=== PATIENT | male | born 1960 | race Caucasian/White ===

== ENCOUNTER 2017-04-21 18:12 | Emergency (ER) | payer OTHER ==
[2015-03-31 15:23] VITALS: BMI 33.5
[~2017-04-21 18:12] MED LIST: BAYER CHEWABLE81 MG PO; ELIQUIS2.5 MG PO; IBUPROFEN800 MG PO; LISINOPRIL-HCTZ1 T13 PO; METOPROLOL TART50 MG PO; PERCOCET 10/3251 TA1 PO; XANAX1 MG PO; XANAX2 MG
[2017-04-21 21:27] LABS: BASOPHILS 0.2 % (0-2); HEMATOCRIT 50.1 % (42.0-54.0); HEMOGLOBIN 16.6 g/dL (13.5-17.5); IMMATURE GRANULOCYTES 0.2 % (0-5); LYMPHOCYTES 29.5 % (15-50); MCH 27.6 pg (26.0-34.0); MCHC 33.1 g/dL (31.0-37.0); MCV 83.4 fL (80.0-100.0); MEAN PLATELET VOLUME 10.6 fL (7.4-10.4); MONOCYTES 9.5 % (2-11); NEUTROPHILS 57.6 % (40-80); RBC 6.01 10x6/uL (4.20-6.10); WBC 8.1 10x3/uL (4.8-10.8)
[2017-04-21 21:30] LABS: PLATELET COUNT 232 10x3/uL (130-400)
[2017-04-21 21:49] LABS: ALBUMIN 4.2 g/dL (3.4-5.0); ALKALINE PHOSPHATASE 59 U/L (46-116); ALT (SGPT) 26 U/L (10-68); BILIRUBIN - TOTAL 0.87 mg/dL (0.2-1.3); CALC OSMOLALITY 279 mosm/kg (275-300); CALCIUM 9.7 mg/dL (8.5-10.1); CARBON DIOXIDE 27.9 mmol/L (21.0-32.0); CHLORIDE - SERUM 103 mmol/L (98-107); CREATINE KINASE 92 UL (21-232); CREATININE - SERUM 0.9 mg/dL (0.6-1.3); GLUCOSE 100 mg/dL (74-106); MAGNESIUM - SERUM 1.9 mg/dL (1.8-2.4); POTASSIUM - SERUM 3.9 mmol/L (3.5-5.1); PROTEIN - SERUM 7.9 g/dL (6.4-8.2); SODIUM 140 mmol/L (136-145); UREA NITROGEN 14 mg/dL (7-18); eGFR NON AFRICAN AMERICAN > 90 mL/min (90-120)
== END 2017-04-21 21:00 | disposition home or self-care (01) ==
LOC: D.ER 18:12
PROVIDERS: Emergency Medicine
DX: G51.0 Bell's palsy (principal)

== ENCOUNTER → 2017-04-28 11:15 | Outpatient (CLI) | payer OTHER ==
[2015-03-31 15:23] VITALS: BMI 33.5
== END | disposition home or self-care (01) ==
LOC: D.MRI 08:30
DX: G45.9 Transient cerebral ischemic attack, unspecified (principal)

== ENCOUNTER → 2017-05-19 13:36 | Outpatient (CLI) | payer OTHER ==
[2015-03-31 15:23] VITALS: BMI 33.5
[~2017-05-19 13:36] MED LIST changes: +DILAUDID2 MG PO; +ELIQUIS5 MG PO; +HYDROCODONE-APA1 TAB PO; +KLONOPIN1 MG PO
== END | disposition home or self-care (01) ==
LOC: D.US 05-13 11:30
DX: R22.42 Localized swelling, mass and lump, left lower limb (principal)

== ENCOUNTER 2017-06-09 09:06 | Day surgery (SDC) | payer OTHER ==
[~2017-06-09 09:06] MED LIST changes: -DILAUDID2 MG PO; -ELIQUIS5 MG PO
[2017-06-09 09:47] VITALS: BP 128/82; BMI 35.6
[2017-06-09 09:50] LABS: HEMATOCRIT 47.7 % (42.0-54.0); HEMOGLOBIN 15.4 g/dL (13.5-17.5); MCH 27.2 pg (26.0-34.0); MCHC 32.3 g/dL (31.0-37.0); MCV 84.1 fL (80.0-100.0); MEAN PLATELET VOLUME 9.9 fL (7.4-10.4); RBC 5.67 10x6/uL (4.20-6.10); RDW 14.3 % (11.5-14.5); WBC 7.6 10x3/uL (4.8-10.8)
[2017-06-09 10:03] LABS: CALC OSMOLALITY 285 mosm/kg (275-300); CALCIUM 8.9 mg/dL (8.5-10.1); CARBON DIOXIDE 26.3 mmol/L (21.0-32.0); CHLORIDE - SERUM 107 mmol/L (98-107); CREATININE - SERUM 0.9 mg/dL (0.6-1.3); GLUCOSE 108 mg/dL (74-106); POTASSIUM - SERUM 4.1 mmol/L (3.5-5.1); SODIUM 142 mmol/L (136-145); UREA NITROGEN 17 mg/dL (7-18); eGFR NON AFRICAN AMERICAN > 90 mL/min (90-120)
[2017-06-09] MEDS ORDERED: DILAUDID2 MG PO (11:45)
--- NOTE | 2017-06-09 14:50 | NUR ---
1345 IV DC WITH CATHER TIP INTACT
--- NOTE | 2017-06-09 14:51 | NUR ---
C/O PAIN OF A 8-10 LEVEL ,ANESTHESIA CALLED KNEE REBLOCKED
--- NOTE | 2017-06-09 15:12 | NUR ---
STATED PAIN LEVEL DOWN TO 5 , ASKING TO LEAVE
--- NOTE | 2017-06-12 09:32 | OP ---
PATIENT NAME: SARIKA JIMENEZ MEDICAL RECORD: [id number] :62 [facility] AD[facility] DATE: SURGEON: ERIC SOLORZANO MD DATE OF OPERATION: 06/09/2017 PREOPERATIVE DIAGNOSIS: Torn patellar tendon. POSTOPERATIVE DIAGNOSES: Torn patellar tendon plus complications of the patellar component. PROCEDURES: 1. Revision of the patella component of the total knee arthroplasty of the left knee. 2. Repair of the quadriceps mechanism. SURGEON: Eric Solorzano MD ANESTHESIA: General. INTRAOPERATIVE COMPLICATIONS: None. SUMMARY OF PATHOLOGIC FINDINGS: The patient had a horizontal split as predicted by physical examination and palpation; however, the patient had a very abnormal wear pattern on the patella with what appeared to be a small piece of bone extruding from the notch of the femur. Both were addressed. The patellar component was revised. OPERATIVE SUMMARY IN DETAIL: After obtaining the appropriate preoperative orthopedic surgery consent as well as anesthetic consultation, evaluation and clearance, the patient was brought to the operating room and placed on the operating table in supine position. After general laryngeal mask was administered, tourniquet was placed about the proximal aspect of left lower extremity. Left lower extremity was then prepped and draped in routine sterile fashion. The leg was elevated and exsanguinated, tourniquet inflated to 350 mmHg. An incision was made superiorly, taken down to the level of the superior aspect of the patella. The split in the quadriceps was readily available. Dissection was carried out in preparation for reapproximation of the quadriceps; however, I took the time to palpate the patella and given the findings of the abnormal wear pattern, I felt it was reasonable to go ahead with the paramedian arthrotomy and evaluate this more fully. After paramedian arthrotomy had been performed, the patella was taken out of the way. The bony substance in the notch of the femur was thought to be the cause of the abnormal patellar wear. This was removed in its entirety with hand osteotomes. All debris was removed from the field and at this point, the previously placed patellar button was gently removed without any bone loss as were the polyethylene pegs. The patella was then reprepared for a new 36 patellar component using the drill bit and then it was copiously irrigated. The new component was cemented into place. All excess cement was removed. After the cement was allowed to harden, the knee was taken through a range of motion with excellent range of motion and no grinding. At this point, the vertical split of the patella was reapproximated [id number]-le-hdsi using #2 Ethibond in a awwinn-ya-heanh fashion. This in fact was used to close the entire paramedian arthrotomy. Having completed this, the wound was copiously irrigated. The skin was closed with #1 Vicryl followed by 2-0 Vicryl and skin dottie. Sterile dressings were applied. Tourniquet was deflated. The patient was awakened and taken to the recovery room in stable condition. OPERATIVE REPORT [id number] SARIKA JIMENEZ All final needle and sponge counts were correct. TRANSINT:[id number] Voice Confirmation ID: [id number] DOCUMENT ID: [id number] ERIC SOLORZANO MD at 0932 CC: [id number] DICTATION DATE: 06/10/171711 GASKET FORMER: 06/10/172101 [facility] 06/09/17 [address] [place] [address]
--- NOTE | 2017-06-24 10:54 | OP ---
PATIENT NAME: SARIKA JIMENEZ MEDICAL RECORD: [id number] :62 LOCATION:TA ADMISSION DATE: SURGEON: ERIC SOLORZANO MD DATE OF OPERATION: 06/09/2017 PREOPERATIVE DIAGNOSIS: Left quadriceps rupture. POSTOPERATIVE DIAGNOSIS: Left quadriceps rupture plus irregularly worn patellar component. PROCEDURES: 1. Revision of the left patella component of the knee. 2. Repair of quadriceps tendon tear. SURGEON: Eric Solorzano MD ANESTHESIA: General. INTRAOPERATIVE COMPLICATIONS: None. SUMMARY OF PATHOLOGIC FINDINGS: A small prominence was protruding in the intercondylar notch of the originally placed total knee. This had caused a wear of the patella thusly liberating I am sure polyethylene causing for the patient's chronic swollen knee. The patient also had a sagittal tear of the quadriceps as it was nearly healed in the 2 separate components. OPERATIVE SUMMARY IN DETAIL: After obtaining the appropriate preoperative orthopedic surgery consent as well as anesthetic consultation, evaluation, and clearance operating room and placed on operating table in supine position. After general laryngeal mask was administered, the tourniquet was placed about the proximal aspect of the left lower extremity. Left lower extremity was then prepped and draped in routine sterile fashion. The leg was elevated and exsanguinated, tourniquet inflated to 350 mmHg. An incision was first started at the superior pole of the patella. This was taken down and the quadriceps defect was immediately recognized in that the 2 edges of which were rolled and not grown together, I took the opportunity at this time to palpate the patellar component and the finding as noted above was seen. An incision was then carried longer, paramedian arthrotomy was performed just enough so that the patella could be everted. The patellar component was removed along with all cement and polyethylene. Copious irrigation was then followed by re-preparation of the patella. A new patella size 36 mm was then cemented into and held in place while the cement was allowed to harden after all excess cement was removed. Having completed this, copious irrigation was then followed by closure of the paramedian arthrotomy with #2 Ethibond and then the quadriceps with blunted edges were cut fresh and then reapproximated [id number] using a #2 FiberWire. This resulted in excellent reapproximation. Having completed this, the patient's wound was closed with #1 Vicryl followed by 2-0 Vicryl and skin dottie. Sterile dressings were applied. The patient was awakened and taken to the recovery room in stable condition. All final needle and sponge counts were correct. TRANSINT:[id number] Voice Confirmation ID: [id number] DOCUMENT ID: [id number] OPERATIVE REPORT [id number] SARIKA JIMENEZ MD, ERIC LARES at 1054 CC: [id number] DICTATION DATE: 06/20/17 1207 AUTO BRAKE TECHNICIAN: 06/20/17 1358 [facility] 06/09/17 [address] [place] [address]
== END 2017-06-09 15:15 | disposition home or self-care (01) ==
LOC: D.OPS 09:06 → D.PAN 10:30 → D.OPS 10:30
PROVIDERS: Anesthesiology
DX: S76.112A Strain of left quadriceps muscle, fascia and tendon, initial encounter (principal); I25.10 Atherosclerotic heart disease of native coronary artery without angina pectoris; I10 Essential (primary) hypertension; Z01.812 Encounter for preprocedural laboratory examination

== ENCOUNTER 2017-06-23 11:04 | Inpatient (IN) | payer OTHER ==
[~2017-06-23] VITALS: Ht 180.3 cm; Wt 41.8 kg
[~2017-06-23 11:04] MED LIST changes: +DILAUDID2 MG PO
[2017-06-23 13:40] VITALS: BP 142/87
[2017-06-23 14:35] VITALS: BP 142/87; Ht 180.3 cm; Wt 41.8 kg
[2017-06-23 14:50] LABS: CALC OSMOLALITY 275 mosm/kg (275-300); CALCIUM 8.9 mg/dL (8.5-10.1); CARBON DIOXIDE 29.1 mmol/L (21.0-32.0); CHLORIDE - SERUM 100 mmol/L (98-107); CREATININE - SERUM 0.9 mg/dL (0.6-1.3); GLUCOSE 106 mg/dL (74-106); POTASSIUM - SERUM 4.3 mmol/L (3.5-5.1); SODIUM 138 mmol/L (136-145); UREA NITROGEN 12 mg/dL (7-18); eGFR NON AFRICAN AMERICAN > 90 mL/min (90-120)
[2017-06-23 14:54] LABS: APTT 20.9 SECONDS (22.8-39.4); INR 1.05 (0.85-1.17); PROTIME 13.6 SECONDS (11.6-15.0)
[2017-06-23 15:00] LABS: BASOPHILS 0.5 % (0-2); EOSINOPHILS 1.7 % (0-7); HEMATOCRIT 45.1 % (42.0-54.0); HEMOGLOBIN 14.5 g/dL (13.5-17.5); IMMATURE GRANULOCYTES 0.5 % (0-5); LYMPHOCYTES 14.2 % (15-50); MCH 26.4 pg (26.0-34.0); MCHC 32.2 g/dL (31.0-37.0); MCV 82.1 fL (80.0-100.0); MEAN PLATELET VOLUME 10.5 fL (7.4-10.4); MONOCYTES 14.2 % (2-11); NEUTROPHILS 68.9 % (40-80); RBC 5.49 10x6/uL (4.20-6.10); RDW 13.5 % (11.5-14.5); WBC 13.8 10x3/uL (4.8-10.8)
[2017-06-23 15:03] LABS: PLATELET COUNT 329 10x3/uL (130-400)
[2017-06-23 15:43] VITALS: BP 129/86
--- NOTE | 2017-06-23 19:15 | NUR ---
RECEIVED CARE FROM DAY NURSE. PT IN HIGH FOWLERS POSITION WITH COMPANY AT SIDE. REPORTS NO NEEDS AT THIS TIME. CALL LIGHT WITHIN REACH. IV INFUSING TO LEFT MIDLINE.
[2017-06-23 20:00] VITALS: BP 96/58
[2017-06-24] VITALS: BP 120/79
--- NOTE | 2017-06-24 03:05 | NUR ---
EYES CLOSED RESPIRATIONS WITH EASE AND UNLABORED. SR UP X2 CALL LIGHT WITHIN REACH.
[2017-06-24 03:57] LABS: BASOPHILS 0.4 % (0-2); EOSINOPHILS 3.5 % (0-7); HEMATOCRIT 39.2 % (42.0-54.0); HEMOGLOBIN 12.6 g/dL (13.5-17.5); IMMATURE GRANULOCYTES 0.4 % (0-5); LYMPHOCYTES 21.3 % (15-50); MCH 26.2 pg (26.0-34.0); MCHC 32.1 g/dL (31.0-37.0); MCV 81.5 fL (80.0-100.0); MONOCYTES 12.5 % (2-11); NEUTROPHILS 61.9 % (40-80); PLATELET COUNT 341 10x3/uL (130-400); RBC 4.81 10x6/uL (4.20-6.10); RDW 13.6 % (11.5-14.5); WBC 11.6 10x3/uL (4.8-10.8)
[2017-06-24 04:00] VITALS: BP 105/60
[2017-06-24 04:10] LABS: ALBUMIN 2.7 g/dL (3.4-5.0); ALKALINE PHOSPHATASE 107 U/L (46-116); ALT (SGPT) 35 U/L (10-68); BILIRUBIN - TOTAL 0.62 mg/dL (0.2-1.3); CALC OSMOLALITY 271 mosm/kg (275-300); CALCIUM 8.2 mg/dL (8.5-10.1); CHLORIDE - SERUM 100 mmol/L (98-107); CREATININE - SERUM 0.9 mg/dL (0.6-1.3); GLUCOSE 119 mg/dL (74-106); POTASSIUM - SERUM 3.9 mmol/L (3.5-5.1); PROTEIN - SERUM 6.6 g/dL (6.4-8.2); SODIUM 136 mmol/L (136-145); UREA NITROGEN 11 mg/dL (7-18); eGFR NON AFRICAN AMERICAN > 90 mL/min (90-120)
--- NOTE | 2017-06-24 07:30 | NUR ---
PT ASSESSMENT COMPLETE AWAKE AND ALERT NO DISTRESS NOTED PIV SITED TO LEFT HAND NS KVO AND MINING TEACHER MOVED TO THAT SITE 22 GA X 1 STICK. TOLERATED WELL.
--- NOTE | 2017-06-24 08:00 | NUR ---
PT WITHOUT DISTRESS.2ND IV PLACED BY HUNG.MONITOR FOR NEEDS
[2017-06-24 08:02] VITALS: BP 116/77
--- NOTE | 2017-06-24 10:30 | NUR ---
PT REMAINS ON BED REST HEPARIN INFUSING AT 15 PER PROTOCOL. LAST PTT RESULTS WITH NO CHANGE PER PROTOCOL. WILL MONITOR.
[2017-06-24 12:26] VITALS: BP 103/53
--- NOTE | 2017-06-24 14:28 | NUR ---
PT REMAINS IN BED NO DISTRESS NOTED VOICES AL NEEDS PAIN CONTROLLED PER POWER AND RECOVERY SUPERVISOR
[2017-06-24 15:51] VITALS: BP 120/50
--- NOTE | 2017-06-24 19:59 | NUR ---
AWAKE,ALERT,ORIENTED. NO COMPLIANTS AT PRESENT. CINDER WORKER DILAUDID IN USE FOR PAIN CONTROL. STERI STRIPS INTACT TO LEFT KNEE. NO DRAINAGE NOTED. EDEMA TO LOWER LEG NOTED. UP ON PILLOW FOR COMFORT. CL IN REACH
[2017-06-24 20:00] VITALS: BP 96/62
--- NOTE | 2017-06-25 01:26 | NUR ---
WATCHING TV QUIELTY. NO COMPLIANTS VOICED. NO DISTRESS NOTED.
--- NOTE | 2017-06-25 03:42 | NUR ---
PT SITTING UP IN BED WATCHING TV. DENIES PAIN. EMT/PARAMEDIC FOR PAIN CONTROL. DENIES NEEDS. CONTINUE DIGITAL STRATEGY SPECIALIST'S PLAN OF CARE.
[2017-06-25 05:12] LABS: BASOPHILS 0.5 % (0-2); EOSINOPHILS 5.7 % (0-7); HEMATOCRIT 38.5 % (42.0-54.0); HEMOGLOBIN 12.2 g/dL (13.5-17.5); IMMATURE GRANULOCYTES 0.4 % (0-5); LYMPHOCYTES 24.2 % (15-50); MCHC 31.7 g/dL (31.0-37.0); MCV 82.1 fL (80.0-100.0); MEAN PLATELET VOLUME 9.9 fL (7.4-10.4); MONOCYTES 14.5 % (2-11); NEUTROPHILS 54.7 % (40-80); PLATELET COUNT 358 10x3/uL (130-400); RBC 4.69 10x6/uL (4.20-6.10); RDW 13.7 % (11.5-14.5); WBC 9.7 10x3/uL (4.8-10.8)
--- NOTE | 2017-06-25 05:33 | NUR ---
AWAKE WITH NO COMPLAINTS. WATCHING TV. CL IN REACH
[2017-06-25 05:41] LABS: ALBUMIN 2.4 g/dL (3.4-5.0); ALKALINE PHOSPHATASE 110 U/L (46-116); BILIRUBIN - TOTAL 0.39 mg/dL (0.2-1.3); CALCIUM 8.1 mg/dL (8.5-10.1); CARBON DIOXIDE 24.8 mmol/L (21.0-32.0); CHLORIDE - SERUM 102 mmol/L (98-107); CREATININE - SERUM 0.8 mg/dL (0.6-1.3); GLUCOSE 126 mg/dL (74-106); POTASSIUM - SERUM 4.2 mmol/L (3.5-5.1); PROTEIN - SERUM 6.3 g/dL (6.4-8.2); SODIUM 137 mmol/L (136-145); eGFR NON AFRICAN AMERICAN > 90 mL/min (90-120)
[2017-06-25 05:51] LABS: ALT (SGPT) 19 U/L (10-68); CALC OSMOLALITY 273 mosm/kg (275-300); UREA NITROGEN 7 mg/dL (7-18)
--- NOTE | 2017-06-25 08:10 | NUR ---
ASSESSMENT COMPLETE. IV TO L FA PATENT. 1/2 NS INFUSING AT 30 CC/HR VIA PUMP. JIGMAN DILAUDID 0.2-10-4 IN USE FOR PAIN CONTROL. INCISION TO L KNEE HEALING WELL. STERI STRIPS INTACT TO L KNEE INCISION. DENIES ANY NEEDS AT PRESENT.
[2017-06-25 08:16] LABS: FOLATE (FOLIC ACID) - SERUM 9.5 ng/mL (>3.0)
[2017-06-25 09:38] VITALS: BP 110/68
--- NOTE | 2017-06-25 12:24 | NUR ---
CARBIDE TOOL DIE MAKER DC'D. PERCOCET GIVEN FOR PAIN. FAMILY AT BEDSIDE.
[2017-06-25 13:41] VITALS: BP 98/53
[2017-06-25] MEDS ORDERED: ELIQUIS5 MG PO (14:18)
--- NOTE | 2017-06-25 15:30 | NUR ---
FAMILY CONCERNED ABOUT TAKING PATIENT HOME TODAY. FAMILY SPOKE WITH ERIK WILCOX APN. DR SOLORZANO WILL COME BY TO SPEAK AFTER FINISHING SURGICAL CASE.
[2017-06-25 15:51] VITALS: BP 98/56
--- NOTE | 2017-06-25 16:30 | NUR ---
DR SOLORZANO BY TO SEE PATIENT. WILL HOLD DISCHARGE UNTIL TOMORROW. WILL TRY THIGH HIGH PAM HOSE ON LEFT LEG TO SEE IF IT HELPS WITH EDEMA WHILE UP. NOTIFIED HEALTH ECONOMIST,SUSI, THAT PAM HOSE WAS NEEDED.
--- NOTE | 2017-06-25 18:00 | NUR ---
DENIES ANY NEEDS AT THIS TIME.
--- NOTE | 2017-06-25 19:16 | NUR ---
PT SITTING UP IN BED, EVEN RISE AND FALL OF CHEST, NO SIGNS OF DISTRESS, PT INQUIRED ON NEXT TIME PAIN MEDS DUE, TOLD PT WILL BRING WITH 2100 MEDS, NO OTHER NEEDS AT THIS TIME WILL CONTINUE TO FOLLOW CARE PLAN
[2017-06-25 20:00] VITALS: BP 124/65
--- NOTE | 2017-06-25 21:15 | NUR ---
GAVE PT EVENING MEDS, BROUGHT IN BOTH PACKAGES OF PAM HOSE AND PT STATED WOULD NOT BE ABLE TO FIT DUE TO HAD TO SPECIAL ORDER SIZE 2XL. PT REQUESTED TO WAIT IN MORNING TO TRY ON OR CAN HAVE SPOUSE BRING PERSONAL PAIR FROM HOME
--- NOTE | 2017-06-25 23:22 | NUR ---
WATCHING TV, DENIES NEEDS, CALL LIGHT IN REACH, WILL CONTINUE TO MONITOR
[2017-06-26] VITALS: BP 109/73
[2017-06-26 04:00] VITALS: BP 107/74
[2017-06-26 05:02] LABS: BASOPHILS 0.5 % (0-2); EOSINOPHILS 7.5 % (0-7); HEMATOCRIT 39.7 % (42.0-54.0); HEMOGLOBIN 12.5 g/dL (13.5-17.5); IMMATURE GRANULOCYTES 0.4 % (0-5); LYMPHOCYTES 22.8 % (15-50); MCH 26.3 pg (26.0-34.0); MCHC 31.5 g/dL (31.0-37.0); MCV 83.4 fL (80.0-100.0); MEAN PLATELET VOLUME 9.7 fL (7.4-10.4); MONOCYTES 14.3 % (2-11); NEUTROPHILS 54.5 % (40-80); PLATELET COUNT 392 10x3/uL (130-400); RBC 4.76 10x6/uL (4.20-6.10); RDW 13.6 % (11.5-14.5); WBC 7.8 10x3/uL (4.8-10.8)
[2017-06-26 05:25] LABS: ALBUMIN 2.4 g/dL (3.4-5.0); ALKALINE PHOSPHATASE 117 U/L (46-116); BILIRUBIN - TOTAL 0.39 mg/dL (0.2-1.3); CALC OSMOLALITY 275 mosm/kg (275-300); CALCIUM 8.4 mg/dL (8.5-10.1); CARBON DIOXIDE 29.1 mmol/L (21.0-32.0); CHLORIDE - SERUM 104 mmol/L (98-107); CREATININE - SERUM 0.8 mg/dL (0.6-1.3); GLUCOSE 102 mg/dL (74-106); POTASSIUM - SERUM 4.1 mmol/L (3.5-5.1); PROTEIN - SERUM 6.5 g/dL (6.4-8.2); SODIUM 139 mmol/L (136-145); UREA NITROGEN 8 mg/dL (7-18); eGFR NON AFRICAN AMERICAN > 90 mL/min (90-120)
[2017-06-26 05:27] LABS: ALT (SGPT) 35 U/L (10-68)
--- NOTE | 2017-06-26 07:50 | NUR ---
ASSESSMENT COMPLETE. MIDLINE TO L AC. SL TO L HAND. INCISION TO LEFT KNEE WITH STERI STRIPS INTACT. PAM HOSE APPLIED TO LEFT LEG. GRANT MANAGER SHOWING SR 87 PER TECH. DENIES ANY NEEDS AT THIS TIME.
[2017-06-26 08:15] VITALS: BP 114/57
--- NOTE | 2017-06-26 11:00 | NUR ---
NO CHANGES NOTED AT PRESENT.
[2017-06-26 12:41] VITALS: BP 111/65
--- NOTE | 2017-06-26 13:15 | NUR ---
MIDLINE TO L AC AND SL TO L HAND REMOVED. CATHETER TIPS INTACT. DRESSING APPLIED AFTER HOLDING PRESSURE. DISCHARGE TEACHING GIVEN TO PATIENT AND FAMILY. VOICED UNDERSTANDING. SCRIPT FOR CHAVO ESCRIPTED TO CHANTE ON AIRPORT.
--- NOTE | 2017-06-26 13:30 | NUR ---
DC'D HOME WITH FAMILY. ESCORTED TO VEHICLE BY CATERERS HELPER VIA WC WITH BELONGINGS.
[2017-07-02 03:07] LABS: FACTOR II DNA ANALYSIS Negative (())
--- NOTE | 2017-07-04 09:02 | EC ---
PATIENT:SARIKA JIMENEZ DATE OF SERVICE: 06/23/17 SEX: M MEDICAL RECORD: [id number] DATE OF : 62 LOCATION:D[id number] AGE OF PATIENT: 56 ADMISSION DATE: 06/23/17 REFERRING PHYSICIAN: INTERPRETING PHYSICIAN: DEE COE MD ECHOCARDIOGRAM REPORT ECHO CHARGES 4 ECHO COMPLETE CLINICAL DIAGNOSIS: DVT/?PE ASSESS FOR CLOTS ECHOCARDIOGRAPHIC MEASUREMENTS (adult normal given) AC root (d.<3.7cm) 4.4 cm LV Septum d (<1.2 cm> 1.6 cm Valve Excursion 2.1 cm LV Septum (systole) 1.9 cm Left Atria (s.<4.0cm> 3.6 cm LVPW d(<1.2cm) 1.4 cm RV (d.<2.3cm) 4.4 cm LVPW (sytole) 1.6 cm LV diastole(<5.6CM) 5.2 cm MV E-F(>70mm/sec) cm LV systole 3.7 cm LVOT Diameter 2.4 cm MV exc.(>10mm) 1.6 cm Est.ejection fraction (50-75%) % Pericardial Effusion N DOPPLER: LVIT cm/sec A 73.0 cm/sec E 97.0 cm/sec LA cm/sec RVSP 20 mmHg LVOT 123 cm/sec AOP1/2T m/s Asc. Ao 140 cm/sec RVOT 92 cm/sec RA cm/sec PA 140 cm/sec AV Gradient Peak 7.89 mmHg AV Mean 3.99 mmHg AV Area 3.8 cm MV Gradient Peak 4.16 mmHg MV Mean 1.65 mmHg MV Area cm COMMENTS: Brick Dropper: Sunny CARRIZALES Attorney Recruiter: Jacob Iglesias TAPE# PACS DATE OF SERVICE: 06/24/2017 ECHOCARDIOGRAM FINDINGS: 1. Left ventricular chamber size is within normal limits. Left ventricular systolic function is normal. Overall ejection fraction estimated at 55%. 2. Left atrium, right atrium and right ventricular chamber sizes are within normal limits. 3. Valvular structures have normal structure and motion. ECHOCARDIOGRAM REPORT [id number] SARIKA JIMENEZ 4. Doppler interrogation only reveals mild mitral regurgitation and trace to mild tricuspid regurgitation, no other valvular insufficiency or stenosis. Pulmonary systolic pressure is normal estimated at 20 mmHg. 5. No evidence of pericardial effusion or left ventricular thrombus. TRANSINT:[id number] Voice Confirmation ID: [id number] DOCUMENT ID: [id number] DEE COE MD at 0902 CC: [id number] DICTATION DATE: 06/24/171703 MILLING MACHINE OPERATOR: 06/24/17 1847 [facility] IN 06/26/17 [facility] [address] [id number]
== END 2017-06-26 13:30 | disposition home or self-care (01) | DRG 300 ==
LOC: D.US 11:04 → D.MS 12:37 → D.US 13:00 → D.MS 06-26 13:30
PROVIDERS: Emergency Medicine; Internal Medicine Hematology & Oncology; ADMIT Orthopaedic Surgery
DX: T81.72XA Complication of vein following a procedure, not elsewhere classified, initial encounter (principal); I82.412 Acute embolism and thrombosis of left femoral vein; I82.442 Acute embolism and thrombosis of left tibial vein; I26.99 Other pulmonary embolism without acute cor pulmonale; I10 Essential (primary) hypertension; Z96.652 Presence of left artificial knee joint; Y83.8 Other surgical procedures as the cause of abnormal reaction of the patient, or of later complication, without mention of misadventure at the time of the procedure